=== PATIENT | female | born 1990 | race Caucasian/White ===

== ENCOUNTER 2017-07-29 18:25 | Emergency (ER) | payer MEDICAID ==
[~2017-07-29] VITALS: Ht 144.8 cm; Wt 62.3 kg
[2017-07-29 20:49] VITALS: BP 125/65
== END 2017-07-29 20:49 | disposition home or self-care (01) ==
LOC: ED 18:25
DX: R09.1 Pleurisy (principal); O90.9 Complication of the puerperium, unspecified; R10.9 Unspecified abdominal pain

== ENCOUNTER 2018-05-02 01:03 | Emergency (ER) | payer MEDICAID ==
[~2018-05-02] VITALS: Ht 144.8 cm; Wt 57.6 kg
[2018-05-02 01:08] VITALS: Ht 144.8 cm; Wt 57.6 kg
[2018-05-02 02:01] VITALS: BP 113/69
== END 2018-05-02 02:01 | disposition home or self-care (01) ==
LOC: ED 01:03
DX: S61.210A Laceration without foreign body of right index finger without damage to nail, initial encounter (principal); W22.8XXA Striking against or struck by other objects, initial encounter; Y93.89 Activity, other specified; Y92.098 Other place in other non-institutional residence as the place of occurrence of the external cause; Y99.8 Other external cause status

== ENCOUNTER 2019-11-12 16:52 | Emergency (ER) | payer MEDICAID ==
[~2019-11-12] VITALS: Ht 147.3 cm; Wt 54.0 kg
[2019-11-12 17:00] VITALS: BP 133/74; Ht 147.3 cm; Wt 54.0 kg
== END 2019-11-12 21:11 | disposition home or self-care (01) ==
LOC: ED 16:52
DX: S30.0XXA Contusion of lower back and pelvis, initial encounter (principal); W01.0XXA Fall on same level from slipping, tripping and stumbling without subsequent striking against object, initial encounter; Y93.89 Activity, other specified; Y92.89 Other specified places as the place of occurrence of the external cause; Y99.8 Other external cause status